=== PATIENT | female | born 1990 | race Two or more races ===

== ENCOUNTER 2017-01-23 16:19 | Observation (INO) | payer BC, MEDICAID ==
[~2017-01-23] VITALS: Ht 167.6 cm; Wt 111.1 kg
[2017-01-23] MEDS ORDERED: ACETAMINOPHEN 500MG TABLET PO NR (16:45)
[2017-01-23] MEDS ORDERED: LACTATED RINGERS 1,000 ML IV SCH (16:45)
== END 2017-01-23 18:15 | disposition home or self-care (01) ==
LOC: INTOOBSV 16:19 → L&D 16:19
PROVIDERS: ADMIT Obstetrics & Gynecology; ATTEND Obstetrics & Gynecology
DX: O26.893 Other specified pregnancy related conditions, third trimester (principal); R10.9 Unspecified abdominal pain; R51 Headache; R20.0 Anesthesia of skin; R53.1 Weakness; R20.2 Paresthesia of skin; O99.513 Diseases of the respiratory system complicating pregnancy, third trimester; R06.02 Shortness of breath; O36.8130 Decreased fetal movements, third trimester, not applicable or unspecified; Z3A.37 37 weeks gestation of pregnancy
CPT/HCPCS: 76815; 76818; 96360; 99281; G0378; J7120; 96361